=== PATIENT | male | born 1985 | race Hispanic/Latino ===

== ENCOUNTER 2024-02-24 20:27 | Emergency (ER) | payer SELFPAY ==
[~2024-02-24] VITALS: Ht 165.1 cm; Wt 68.0 kg
[2024-02-24] MEDS ORDERED: Diph, Acellular Pertussis, Tet 0.5 ML/VIAL (Tdap) SDV IM ONE (20:55)
[2024-02-24] MEDS ORDERED: KETOROLAC TROMETHAMINE 30 MG/ML SDV IM ONE (20:55)
[2024-02-24] MEDS ORDERED: LIDOcaine HCl 1% (Local Anesth.) 20 ML VIAL STI ONE (20:55)
[2024-02-24] MEDS ORDERED: Cefdinir 300 MG/CAP PO ONE (21:00)
[2024-02-24] MEDS ORDERED: POVIDONE IODINE 4 OZ BTL TOP ONE (21:00)
[2024-02-25] MEDS ORDERED: OMNI-PAC300 MG PO (00:32)
[2024-02-25 01:47] VITALS: BP 109/70
== END 2024-02-25 01:47 | disposition home or self-care (01) | DRG 605 ==
LOC: ED 20:27
PROC: 0HQGXZZ Repair Left Hand Skin, External Approach (ICD-10-PCS; principal; 2024-02-24)
DX: S61.412A Laceration without foreign body of left hand, initial encounter (principal); W26.0XXA Contact with knife, initial encounter; Y93.G3 Activity, cooking and baking; Y92.000 Kitchen of unspecified non-institutional (private) residence as the place of occurrence of the external cause

== ENCOUNTER 2024-03-02 09:45 | Emergency (ER) | payer SELFPAY ==
[~2024-03-02] VITALS: Ht 165.1 cm; Wt 61.0 kg
[~2024-03-02 09:45] MED LIST: OMNI-PAC300 MG PO
[2024-03-02 09:49] VITALS: BP 107/70
[2024-03-02 09:59] VITALS: BP 107/74
[2024-03-02 10:07] VITALS: BP 107/74
== END 2024-03-02 10:00 | disposition home or self-care (01) | DRG 950 ==
LOC: ED 09:45
DX: S61.412D Laceration without foreign body of left hand, subsequent encounter (principal); X58.XXXD Exposure to other specified factors, subsequent encounter